=== PATIENT | male | born 1970 | race American Indian/Alaskan Native ===

== ENCOUNTER 2021-06-12 10:03 | Emergency (ER) | payer SELFPAY ==
--- NOTE | 2021-06-12 10:20 | Emergency Department Report ---
ED CPR HPI - General Chief Complaint: Cardiac Arrest/CPR Stated Complaint: CARDIAC ARREST Time Seen by Provider: 06/12/21 10:16 - History of Present Illness Initial Comments: Patient presents in cardiac arrest by EMS. He was last seen at about 9 AM by family. He was getting into the shower. 920 or so, they heard him fall. They subsequently checked on him about 930 and found the patient in cardiac arrest. He underwent bystander CPR. EMS was called. They have been doing ACLS protocol since that they were on scene. He has been asystolic the whole time. This is despite CPR, Salvatore airway, and medication. There was no visible sign of trauma per their report. History was obtained from EMS. Family was not present upon EMS arrival. Patient had undergone CPR for approximately 30 minutes per EMS report. ED Review of Systems ROS: Stated complaint: CARDIAC ARREST Other details as noted in HPI Comment: Unobtainable due to pts medical conditions (Cardiac arrest) ED Past Medical Hx - Past Medical History Additional medical history: Cannot be obtained from the patient secondary to cardiac arrest. Per EMS, patient has history of hypertension and diabetes. - Surgical History Additional Surgical History: Cannot be obtained from the patient secondary to cardiac arrest - Family History Family history: other (Cannot be obtained for the patient secondary to cardiac arrest) - Social History Substance Use Type: Other (Cannot be obtained for the patient secondary to cardiac arrest) ED Physical Exam - General Limitations: Physical Limitation (Cardiac arrest), Other (CPR is in progress. Back ventilation with a Salvatore airway is in progress.) General appearance: obese, other (Unresponsive) - Head Head exam: Present: atraumatic, normal inspection - Eye Eye exam: Present: other (Pupils are 4 mm and fixed with a conjugate gaze) - ENT ENT exam: Present: other (Salvatore airway in place) - Neck Neck exam: Present: normal inspection - Respiratory Respiratory exam: Present: other (Rhonchorous breath sounds with bag ventilation) - Cardiovascular Cardiovascular Exam: Present: other (Asystolic and pulseless) - GI/Abdominal GI/Abdominal exam: Present: soft - Extremities Exam Extremities exam: Present: other (No visible trauma) - Neurological Exam Neurological exam: Present: other (Unresponsive. GCS 3) - Skin Skin exam: Present: warm ED Course - Reevaluation(s) Reevaluation #1: 06/12/21 10:19 CPR was continued upon EMS arrival. I was present when they arrived. We continued to administer CPR. He had multiple rounds of epinephrine without symptomatic improvement or return of spontaneous circulation. At the next pulse check, PEA was noted. There was no cardiac activity with bedside ultrasound. Patient had failed resuscitative efforts and he was pronounced. - Procedure Description Procedures done: Procedure note: Cardiac ultrasound. Indication: Cardiac arrest, evaluate for cardiac activity. Patient was supine on the gurney. The small curvilinear probe was used to evaluate the cardiac silhouette from a left parasternal view. There was no cardiac motion. Patient had electrical activity on the monitor. This is consistent with PEA. There was no pulse associated wit h this. ED Medical Decision Making - Lab Data Rhythm strip PEA. Monitor observe 10 seconds. - Medical Decision Making Patient presented in cardiac arrest with CPR in progress. He had had at least 30 minutes of downtime with CPR. He had no return of spontaneous circulation. At this time, patient was pronounced. There was no pupillary response. He had no spontaneous respirations. There was no pulse or cardiac activity. Critical Care Time: No (CPR time of 5 minutes total) Critical care attestation.: If time is entered above; I have spent that time in minutes in the direct care of this critically ill patient, excluding procedure time. ED Disposition Clinical Impression: Cardiac arrest Disposition: 20 Is pt being admited?: No Condition: Stable
== END 2021-06-12 17:45 ==
LOC: ED 10:03
DX: I46.9 Cardiac arrest, cause unspecified (principal)
CPT/HCPCS: 92950; 99285